=== PATIENT | male | born 1980 | race Hispanic/Latino ===

== ENCOUNTER 2021-06-09 02:55 | Emergency (ER) | payer OTHER ==
[~2021-06-09] VITALS: Ht 165.1 cm; Wt 77.1 kg
[2021-06-09 02:58] VITALS: BP 142/87
[2021-06-09] MEDS ORDERED: NAPR-1180 PO (05:30)
== END 2021-06-09 06:37 | disposition home or self-care (01) ==
LOC: EDH 02:55
DX: S39.012A Strain of muscle, fascia and tendon of lower back, initial encounter (principal); S20.212A Contusion of left front wall of thorax, initial encounter; S80.811A Abrasion, right lower leg, initial encounter; V49.09XA Driver injured in collision with other motor vehicles in nontraffic accident, initial encounter; Y93.89 Activity, other specified; Y92.89 Other specified places as the place of occurrence of the external cause; Y99.8 Other external cause status
CPT/HCPCS: 71045; 71100; 72100; 72170

== ENCOUNTER 2022-05-04 17:18 | Emergency (ER) | payer OTHER ==
[~2022-05-04] VITALS: Ht 165.1 cm; Wt 77.1 kg
[~2022-05-04 17:18] MED LIST: NAPR-1180 PO
[2022-05-04] MEDS ORDERED: TETRACAINE HCL 0.5% 4 ML OPHTH SOLN OP SCH (18:00)
[2022-05-04] MEDS ORDERED: FLUORESCEIN SODIUM 1 STRIP STRIP OP SCH (18:00)
[2022-05-04] MEDS ORDERED: ERYTHROMYCIN BASE 0.5% OPHTH OINT 1 GM TUBE ONE (18:16)
[2022-05-04] MEDS ORDERED: IBUP-2070 PO (18:22)
[2022-05-04] MEDS ORDERED: ERYT1OIN7 OP (18:22)
[2022-05-04 18:28] VITALS: BP 137/97
[2022-05-04] MEDS ORDERED: ERYTHROMYCIN BASE 0.5% OPHTH OINT 1 GM TUBE OU SCH (18:30)
== END 2022-05-04 18:30 | disposition home or self-care (01) ==
LOC: EDH 17:18
DX: S05.02XA Injury of conjunctiva and corneal abrasion without foreign body, left eye, initial encounter (principal); Z79.1 Long term (current) use of non-steroidal anti-inflammatories (NSAID); X58.XXXA Exposure to other specified factors, initial encounter; Y93.89 Activity, other specified; Y92.89 Other specified places as the place of occurrence of the external cause; Y99.8 Other external cause status